=== PATIENT | male | born 1975 | race Caucasian/White ===

== ENCOUNTER 2016-05-09 13:15 | Emergency (ER) ==
[2016-05-09] MEDS ORDERED: DILAUDID IM ONE (13:48)
--- NOTE | 2016-05-09 13:55 | PROVIDER DOCUMENTATION ---
HPI-Rash/Wound/ReCheck - General Chief Complaint: Extremity Pain Stated Complaint: RECHECK/RT HAND Time Seen by Provider: 05/09/16 13:39 Source: patient Allergies/Adverse Reactions: Allergies Allergy/AdvReac Type Severity Reaction Status Date / Time clonidine Allergy Unknown Verified 05/04/16 03:55 iodine Allergy Unknown Verified 05/04/16 03:55 shellfish derived Allergy ANAPHYLAXIS Verified 07/18/14 13:33 Home Medications: Oxycodone HCl [Roxicodone] 30 mg PO DAILY 07/18/14 Promethazine [Phenergan] 25 mg PO Q6H PRN PRN 07/18/14 Zolpidem [Ambien] 10 mg PO QHS 07/18/14 Atenolol 50 mg PO DAILY 05/04/16 Atorvastatin Calcium [Lipitor] 10 mg PO DAILY 05/04/16 Fentanyl 50 Microgm/Hr Patch [Duragesic 50 Microgm/Hr Patch] 50 mcg TOP DIRECTED 05/04/16 Metformin [Glucophage] 500 mg PO DAILY 05/04/16 - History of Present Illness-Dermatology Nature of Presenting Problem: 40 y/o WM c/o R hand, elbow swelling and pain x 6 days. States was seen here for it on 04 May and given medications to treat gout and cellulitis. States that it was only in the R hand at the time. States that he is taking medications as directed, but reports pain 01/12. 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 States hx of gout in the past, but unsure if in the hand; states cellulitis in the R hand 2 years ago. Review of Systems - Adult - REVIEW OF SYSTEMS - ADULT Constitutional: reports: no symptoms reported. denies: chills, fever Eyes: reports: no symptoms reported. denies: blurred vision, double vision Ears, Nose, Mouth & Throat: reports: no symptoms reported. denies: ear pain, nose pain Cardiovascular: reports: no symptoms reported. denies: chest pain, palpitations Respiratory: reports: no symptoms reported. denies: dyspnea on exertion, shortness of breath Gastrointestinal: reports: no symptoms reported. denies: abdominal pain, nausea , vomiting Genitourinary: reports: no symptoms reported. denies: dysuria, frequency Musculoskeletal: reports: see HPI, joint pain. denies: back pain, joint swelling, neck pain Integumentary: reports: see HPI, other. denies: mole changes, rash Neurological: reports: no symptoms reported. denies: numbness, paresthesia Psychiatric: reports: no symptoms reported Endocrine: reports: no symptoms reported. denies: cold intolerance, heat intolerance Hematologic/Lymphatic: reports: no symptoms reported. denies: easy bruising, prolonged bleeding Allergic/Immunologic: reports: no symptoms reported All Other Systems: Reviewed and Negative Past History - Adult - PAST MEDICAL HISTORY-ADULT Review of Records: reports: Nursing Assessment Review, Medications Reviewed Major Childhood Illnesses: reports: denies history Cardiovascular: reports: denies history Respiratory: reports: denies history Gastrointestinal: reports: denies history Obstetrical/Gynecological: reports: denies history Genitourinary: reports: denies history Musculoskeletal: reports: chronic pain Neurological: reports: denies history Endocrine/Immune: reports: denies history Other Conditions: reports: denies history - PRIOR SURGERIES/PROCEDURES Surgical/Procedure History: reports: back/neck - IMMUNIZATION STATUS Childhood Immunizations: See Nurse Assessment Flu Vaccine: See Nurse Assessment - FAMILY HISTORY Family History: reviewed, not pertinent - SOCIAL HISTORY Smoking: cigar, less than 1 pack/day Provider spent 3-5 mins advising pt. on dangers of tobacco.: Discussed manners to quit use, and f/u contacts for add'l counseling. Physical Exam-General - PHYSICAL EXAM-ADULT Initial Vital Signs Reviewed: Yes - CONSTITUTIONAL General Appearance: alert, mild distress - EYES Eyes: pink conjunctivae - HEAD, EARS, NOSE, MOUTH & THROAT HENMT: moist mucous membranes - NECK Neck: normal inspection - RESPIRATORY Respiratory: lungs clear, normal breath sounds. negative: crackles, rales, rhonchi, stridor, wheezing - CARDIOVASCULAR Cardiovascular: normal peripheral pulses, regular rate, rhythm. negative: bradycardia, tachycardia - LYMPHATIC Lymphatic: negative: streaking - MUSCULOSKELETAL Extremity: normal gait, normal capillary refill, erythema (R hand, R elbow), swelling (R hand, r elbow), tenderness (R hand, wrist, forearm, elbow). negative: normal range of motion (LROM at R hand, wrist, elbow), abnormal NV exam, deformity, pulse deficit Peripheral Pulses: radial (R): 2+, radial (L): 2+ - SKIN Integumentary: normal color, normal turgor, warm/dry, erythema (R hand, R elbow) , warm - NEUROLOGIC Neurologic: negative: aphasia - PSYCHIATRIC Psych/Mental Status: normal mood/affect, normal thought content, normal thought process, oriented x 3 Progress - PLAN OF CARE/RESULTS Progress/Plan/Lab Results: Laboratory Tests 05/09/16 05/09/16 14:25 14:25 WBC 8.81 RBC 5.02 Hgb 16.3 Hct 45.1 MCV 89.8 MCH 32.5 H MCHC 36.1 RDW Std Deviation 12.1 Plt Count 218 MPV 9.5 Immature Gran % (Auto) 0.2 Neut % (Auto) 59.6 Lymph % (Auto) 17.0 L [place] % (Auto) 12.9 H Eos % (Auto) 9.8 Baso % (Auto) 0.5 Immature Gran # (Auto) 0.02 Neut # (Auto) 5.25 Lymph # (Auto) 1.50 [place] # (Auto) 1.14 H Eos # (Auto) 0.86 H Baso # (Auto) 0.04 Sodium 138 Potassium 4.6 Chloride 98 Carbon Dioxide 26 Anion Gap 14 BUN 6 L Creatinine 1.0 Estimated GFR/1.73 m2 > 60 BUN/Creatinine Ratio 6 Glucose 159 H Calculated Osmolality 277 Uric Acid 7.7 H Calcium 9.1 Total Bilirubin 0.24 AST 22 ALT 15 Alkaline Phosphatase 91 Total Protein 7.9 Albumin 4.6 Globulin 3.3 Albumin/Globulin Ratio 1.4 Orders Category Date Time Status ELBOW COMPLETE RIGHT [RAD] Stat Exams 05/09/16 13:47 Draft HAND COMPLETE RIGHT [RAD] Stat Exams 05/09/16 13:47 Draft CBC WITH ELECTRONIC DIFF [HEME] Stat Lab 05/09/16 14:25 Completed COMPREHENSIVE METABOLIC PANEL [CHEM] Stat Lab 05/09/16 14:25 Completed URIC ACID [CHEM] Stat Lab 05/09/16 14:25 Completed Dexamethasone [Decadron] Med 05/09/16 13:58 Discontinued 10 mg IM NOW ONE Hydromorphone [Dilaudid] Med 05/09/16 13:48 Discontinued 2 mg IM NOW ONE Vital Signs Temp Pulse Resp BP Pulse Ox 05/09/16 13:27 97.7 F 88 18 147/104 100 clonidine Allergy (Verified 05/04/16 03:55) Unknown iodine Allergy (Verified 05/04/16 03:55) Unknown shellfish derived Allergy (Verified 07/18/14 13:33) ANAPHYLAXIS Oxycodone HCl [Roxicodone] 30 mg PO DAILY 07/18/14 Promethazine [Phenergan] 25 mg PO Q6H PRN PRN 07/18/14 Zolpidem [Ambien] 10 mg PO QHS 07/18/14 Atenolol 50 mg PO DAILY 05/04/16 Atorvastatin Calcium [Lipitor] 10 mg PO DAILY 05/04/16 Cephalexin [Keflex] 500 mg PO BID #14 capsule 05/04/16 Fentanyl 50 Microgm/Hr Patch [Duragesic 50 Microgm/Hr Patch] 50 mcg TOP DIRECTED 05/04/16 Ibuprofen [Motrin] 800 mg PO Q8H PRN PRN #20 tablet 05/04/16 Metformin [Glucophage] 500 mg PO DAILY 05/04/16 Omeprazole [Prilosec] 20 mg PO DAILY@0700 #20 capsule 05/04/16 Prednisone 20 mg PO DAILY #15 tablet 05/09/16 Laboratory 05/09/16 05/09/16 14:25 14:25 WBC 8.81 RBC 5.02 Hgb 16.3 Hct 45.1 MCV 89.8 MCH 32.5 H MCHC 36.1 RDW Std Deviation 12.1 Plt Count 218 MPV 9.5 Immature Gran % (Auto) 0.2 Neut % (Auto) 59.6 Lymph % (Auto) 17.0 L [place] % (Auto) 12.9 H Eos % (Auto) 9.8 Baso % (Auto) 0.5 Immature Gran # (Auto) 0.02 Neut # (Auto) 5.25 Lymph # (Auto) 1.50 [place] # (Auto) 1.14 H Eos # (Auto) 0.86 H Baso # (Auto) 0.04 Sodium 138 Potassium 4.6 Chloride 98 Carbon Dioxide 26 Anion Gap 14 BUN 6 L Creatinine 1.0 Estimated GFR/1.73 m2 > 60 BUN/Creatinine Ratio 6 Glucose 159 H Calculated Osmolality 277 Uric Acid 7.7 H Calcium 9.1 Total Bilirubin 0.24 AST 22 ALT 15 Alkaline Phosphatase 91 Total Protein 7.9 Albumin 4.6 Globulin 3.3 Albumin/Globulin Ratio 1.[address] Werner; he states pt has dx of gout and needs to be treated with steroids. Discussed results and f/u with pt. - XRAY 1 XRAY: Right XRAY Study: Hand Impression: See EMR Report (No acute disease, per Dr. Goddard) 2 XRAY: Right XRAY Study: Elbow Impression: See EMR Report (No acute disease, per Dr. Goddard) Departure - Departure Time of Disposition Order: 15:35 DIAGNOSIS: Cellulitis of hand Gout attack Qualifiers: Gout site: multiple sites Gout etiology: unspecified cause Qualified Code(s): M10.9 - Gout, unspecified Disposition: HOME 01 Certified Medical Emergency: Emergent Condition: Stable Additional Instructions: Continue taking current medications as directed. Add in new medications for further management. Follow up with PCP if symptoms persist. ED Follow Up Instructions: You have been treated by a care provider in the Emergency Department. These instructions are being provided to you so you can have an understanding of how to care for yourself upon discharge. Upon discharge from the Emergency Department, you are responsible for making arrangements for follow-up care by a physician of your choice. Take all prescribed medications as directed. Return to the Emergency Department immediately for any new or worsening symptoms. You may call the Physician Referral phone number at [phone] to obtain a list of Physicians who are taking new patients. Prescriptions: Prednisone 20 mg PO DAILY #15 tablet Referrals: Dionisio Orellana MD [Primary Care Provider] - Attestation - Physician/ Mid-level Attestation Patient care was provided by Mid-level provider ([employer]ATOR/PA):: Yes Mid-level provider:: Genia Herrera Mid-level documentation review:: The Mid-level provider documentation, treatment plan and medical decision making was reviewed by the physician who agrees with all treatment and medical decision making by the MLP.
[2016-05-09] MEDS ORDERED: DECADRON IM ONE (13:58)
[2016-05-09 14:34] LABS: MANUAL DIFF NEEDED? NO
[2016-05-09 14:40] LABS: BASO% 0.5 % (0.0-0.8); EOS# 0.86 X1000 (0.0-0.7); EOS% 9.8 % (0.0-10.0); HEMATOCRIT 45.1 % (42.0-52.0); HEMOGLOBIN 16.3 g/dL (14.0-18.0); IMM GRAN# 0.02 X1000 (0.0-0.04); IMM GRAN% 0.2 % (0.0-0.5); MCH 32.5 PG (27-31); MCHC 36.1 g/dL (33-37); MCV 89.8 FL (81-99); MONO# 1.14 X1000 (0.11-0.59); MONO% 12.9 % (1.7-9.3); MPV 9.5 FL (7.4-10.4); NEUT% 59.6 % (42.2-75.2); PLT 218 X1000 (130-400); RBC 5.02 XMIL (4.7-6.1)
--- NOTE | 2016-05-09 14:49 | Diag Imaging Result Document ---
PROCEDURE NAME: HAND COMPLETE RIGHT - 05/09/2016 RIGHT HAND, 3 VIEWS: COMPARISON: None. FINDINGS: There is old contour deformity of the right 5th metacarpal compatible with an old healed boxer's fracture. No acute fracture or subluxation. IMPRESSION: No acute disease.
--- NOTE | 2016-05-09 14:50 | Diag Imaging Result Document ---
PROCEDURE NAME: ELBOW COMPLETE RIGHT - 05/09/2016 RIGHT ELBOW, 3 VIEWS: COMPARISON: None. FINDINGS: Bones are intact and normally aligned. Joint spaces and soft tissues are clear. IMPRESSION: Negative exam.
[2016-05-09 15:13] LABS: AGAP 14; ALBUMIN 4.6 g/dL (3.5-5.0); ALKALINE PHOSPHATASE 91 U/L (32-122); BUN 6 mg/dL (8-22); CALCIUM 9.1 mg/dL (8.8-10.2); CHLORIDE 98 mmol/L (98-107); COSMO 277; GOT 22 U/L (10-34); GPT 15 U/L (10-44); POTASSIUM 4.6 mmol/L (3.5-5.1); SODIUM 138 mmol/L (136-145); TCO2 26 mmol/L (25-35); TOTAL BILIRUBIN 0.24 mg/dL (0.20-1.00); TOTAL PROTEIN 7.9 g/dL (6.3-8.3); URIC ACID 7.7 mg/dL (3.4-7.0)
[2016-05-09 16:05] VITALS: BP 145/98
== END 2016-05-09 16:01 | disposition home or self-care (01) ==
LOC: ED 13:15
DX: L03.113 Cellulitis of right upper limb (principal); M10.9 Gout, unspecified; M79.641 Pain in right hand; M25.521 Pain in right elbow; M79.89 Other specified soft tissue disorders; M25.421 Effusion, right elbow; L53.9 Erythematous condition, unspecified; M25.531 Pain in right wrist; Z79.899 Other long term (current) drug therapy; G89.29 Other chronic pain; F17.290 Nicotine dependence, other tobacco product, uncomplicated; Z71.6 Tobacco abuse counseling
CPT/HCPCS: 80053; 84550; 85025; 96372; J1170